=== PATIENT | male | born 1990 | race Caucasian/White ===

== ENCOUNTER 2016-08-20 19:41 | Emergency (ER) | payer OTHER ==
[2016-08-20 19:50] VITALS: TEMP 98.2
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
[2016-08-20] MEDS ORDERED: IBUPROFEN 600 MG TAB PO ONE ×2 (20:14→20:18)
[2016-08-20] MEDS ORDERED: OXYCODONE/APAP 5/325MG PREPACK#4 BTL TAKEHOME ONE (20:54)
[2016-08-20 21:21] VITALS: BP 118/72; PULSE 69; RESP 16; O2SAT 95
== END 2016-08-20 21:21 | disposition home or self-care (01) ==
DX: S43.101A Unspecified dislocation of right acromioclavicular joint, initial encounter (principal); V00.131A Fall from skateboard, initial encounter; Y93.51 Activity, roller skating (inline) and skateboarding
CPT/HCPCS: A4565